=== PATIENT | male | born 2005 | race African-American/Black ===

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

== ENCOUNTER 2025-01-17 16:34 | Emergency (ER) | payer SELFPAY ==
[2025-01-17] MEDS: Carboxymethylcellulose Sodium 1% Ophth Gel 15 ML Bottle EYEBOTH ONE (17:24)
== END 2025-01-17 17:50 | disposition left against medical advice (07) ==
LOC: JD.ED 16:34
DX: H10.13 Acute atopic conjunctivitis, bilateral (principal); Z86.16 Personal history of COVID-19
CPT/HCPCS: 99283; A9270